=== PATIENT | male | born 1980 | race Caucasian/White ===

== ENCOUNTER 2018-04-12 03:09 | Emergency (ER) | payer MEDICAID ==
[~2018-04-12] VITALS: Ht 177.8 cm; Wt 98.0 kg
[2018-04-12 03:18] VITALS: Ht 177.8 cm; Wt 98.0 kg
[2018-04-12 04:58] LABS: BASOPHIL % 0.4 % (0-2); PLATELET COUNT 262 x10^3mcL (130-400); RED CELL DISTRIBUTION WIDTH 13.4 % (11.5-14.5)
[2018-04-12 05:10] LABS: CALCIUM 8.3 mg/dL (8.5-10.1); CARBON DIOXIDE 23.8 mmol/L (21-32); CHLORIDE SERUM 106 mmol/L (98-107); CREATININE SERUM 1.5 mg/dL (0.7-1.3); GFR1 55 mL/min; GLUCOSE SERUM 351 mg/dL (74-106); SODIUM SERUM 141 mmol/L (136-145)
[2018-04-12 05:22] LABS: ALBUMIN 3.9 g/dL (3.4-5.0); ALKALINE PHOSPHATASE 108 U/L (46-116); ALT/SGPT 23 U/L (16-63); AST/SGOT 19 U/L (15-37); BILIRUBIN TOTAL 0.25 mg/dL (0.20-1.00); FREE T4 1.01 ng/dL (0.76-1.46); TOTAL PROTEIN, SERUM 7.5 g/dL (6.4-8.2)
[2018-04-12 06:05] LABS: UA SPECIFIC GRAVITY <=1.005 (1.005-1.035); microscopic required? YES; urine erythrocyte 1+ (NEGATIVE)
[2018-04-12 06:17] LABS: AMPHETAMINE QUAL UR NONE DETECTED (See below)
[2018-04-12 11:38] LABS: CALCIUM 8.5 mg/dL (8.5-10.1); CARBON DIOXIDE 22.7 mmol/L (21-32); CHLORIDE SERUM 106 mmol/L (98-107); CREATININE SERUM 1.2 mg/dL (0.7-1.3); GFR1 > 60 mL/min; GLUCOSE SERUM 297 mg/dL (74-106); POTASSIUM SERUM 4.4 mmol/L (3.5-5.1); SODIUM SERUM 141 mmol/L (136-145)
[2018-04-12 15:19] VITALS: BP 160/100
== END 2018-04-12 15:19 | disposition home or self-care (01) ==
LOC: ED 03:09
PROVIDERS: Emergency Medicine
DX: F10.129 Alcohol abuse with intoxication, unspecified (principal); I10 Essential (primary) hypertension; E11.9 Type 2 diabetes mellitus without complications
CPT/HCPCS: 84439; G0480; J2060; J3490